=== PATIENT | female | born 1995 | race Caucasian/White ===

== ENCOUNTER 2018-07-29 19:01 | Emergency (ER) | payer SELFPAY ==
[~2018-07-29] VITALS: Ht 172.7 cm; Wt 93.2 kg
[2018-07-29 19:07] VITALS: BP 134/80; PULSE 102; TEMP 98
[2018-07-29 19:41] LABS: BASO % 0.4 % (0.0-2.0); EOS # 0.1 (0.0-0.7); EOS % 1.4 % (0-4.0); GRAN # 6.8 (1.4-6.5); GRAN % 70.3 % (42.2-75.2); HEMOGLOBIN 13.9 g/dl (12.5-16.0); LYMPH % 20.7 % (20.0-51.0); MEAN CELL VOLUME 87 fl (80.0-100.0); MEAN CORPUSCULAR HEMOGLOBIN 30 pg (27.0-31.0); MEAN CORPUSCULAR HGB CONC 34 g/dl (33.0-37.0); MEAN PLATELET VOLUME 10.4 fl (7.4-10.4); MONO # 0.6 (0.1-0.6); MONO % 6.6 % (1.7-9.3); PLATELET COUNT 325 K/mm3 (130-400); RED BLOOD COUNT 4.69 M/mm3 (4.10-5.30); REDCELL DISTRIBUTION WIDTH-CV 11.9 % (11.5-14.5)
[2018-07-29 19:58] LABS: ALBUMIN 4.3 gm/dL (3.5-5.0); BILIRUBIN,TOTAL 0.4 mg/dL (0.0-1.0); C-REACTIVE PROTEIN 1.2 mg/dL (0.0-0.9); CALCIUM 9.4 mg/dL (8.4-10.2); CREATININE, serum 0.94 (0.52-1.25); POTASSIUM 4.1 mmol/L (3.4-5.0); TOTAL PROTEIN 8.1 gm/dL (6.4-8.2)
[2018-07-29 20:29] LABS: COLLECTION METHOD CLEAN CATCH
[2018-07-29 20:37] LABS: MUCOUS Present /lpf; PH 6 (5-8); URINE APPEARANCE Hazy; URINE BACTERIA Rare /hpf; URINE BILIRUBIN Negative (NEGATIVE); URINE BLOOD 3+ (NEGATIVE); URINE COLOR Yellow; URINE GLUCOSE Negative (NEGATIVE); URINE KETONE Negative (NEGATIVE); URINE LEUKOCYTE ESTERASE Negative (NEGATIVE); URINE NITRATE Negative (NEGATIVE); URINE PROTEIN(semi-quant) Negative (NEGATIVE); URINE UROBILINOGEN Negative (NEGATIVE)
[2018-07-29] MEDS ORDERED: ZOFRAN ODT4 MG PO (22:14)
[2018-07-29] MEDS ORDERED: PERCOCET 325 MG1 TA2 PO (22:14)
== END 2018-07-29 22:30 | disposition home or self-care (01) ==
LOC: COL.ER 19:01
PROVIDERS: Nurse Practitioner
DX: N83.201 Unspecified ovarian cyst, right side (principal); Z90.49 Acquired absence of other specified parts of digestive tract
CPT/HCPCS: J1170; J2405; J7030; Q9967